=== PATIENT | male | born 1985 | race Caucasian/White ===

== ENCOUNTER 2016-10-15 02:35 | Emergency (ER) | payer OTHER ==
--- NOTE | 2016-10-15 05:53 | DIAGNOSTIC IMAGING REPORT ---
PROCEDURE: XR ANKLE 3 OR 4 VIEWS - RIGHT INDICATION: PAIN TECHNIQUE: Four views. COMPARISON: None. FINDINGS: No fracture or dislocation. Ankle mortise is normal. Moderate soft tissue swelling medially and laterally. IMPRESSION: 1. Right ankle soft tissue swelling.
--- NOTE | 2016-10-15 06:35 | ED NURSING NOTES ---
Clinical Report - Nurses [facility] [address] [place] [address] 10/15/2016 2:37 Patient: JACOB LEONE TRIAGE Triage time 02:47 Oct 15 2016. Chief Complaint: TENDER AREA. SEPSIS SCREEN: Sepsis Screen: negative. Infection suspected/documented. DIANA COMA SCORE: Diana Coma Scale: 15- eyes open spontaneously (4); best verbal response- oriented and converses (5); best motor response- obeys commands (6). --03:00 AliM 02:47 10/15/16. BP: 134/70. HR: 85. RR: 16 (regular, unlabored and normal). O2 saturation: 98%. Temp: 98.1 F (oral). Pain level now: 5/10. --03:00 AliM. Weight: 79.3 kg stated. Height/Length: 72 inches Per Patient. BMI: 23.7. --02:51 AliM. Medications Albuterol Sulfate ER Oral. --02:57 AliM. Allergies NSAIDs. --02:57 AliM Augmentin. --02:57 AliM. History Historian: patient. Arrived (friend dropped off). Primary physician (none). Reported as (right ankle and distal leg). Onset. (4 days ago). It is described as itchy and painful. ( Pt states he was working outside when he scratch his leg on a tree 4 days ago. Pt states pain has been intermittent since the scratch but has gotten worse today. Pt states additional wounds have been showing up around the area since initial injury. Pt states he has been applying Neosporin to the area but has stopped due to worsening condition. Pt reports nausea today only.). No fever, muscle aches, difficulty breathing, itching or weakness. Not burning. PAST MEDICAL HX: Asthma. Immunizations: up-to-date and (Pt states recieved last tetatnus shot 2-3 years ago). SOCIAL HX: Light tobacco smoker- less than 1/2 a pack per day. History of weekly drug use: heroin, methamphetamines. No alcohol use. No infectious disease exposure. ABUSE ASSESSMENT: No report of abuse. NUTRITIONAL RISK ASSESSMENT: The nutritional risk assessment revealed no deficiencies. FUNCTIONAL ASSESSMENT: Functional assessment: no impairments noted. LEARNING NEEDS ASSESSMENT: The learning needs assessment revealed no barriers. FALL RISK ASSESSMENT: Fall risk assessment completed. Risk factors identified include nausea. Fall interventions initiated. Side rails up x1. Brakes on Bed in low position. SKIN INTEGRITY ASSESSMENT: Abrasions noted on the right ankle; present on arrival (Scabs, redness). --03:00 AliM. PROBLEMS: Anxiety Reaction. Asthma. --02:59 AliM. ADDITIONAL SURGERIES: Gum repair from injury. --02:59 AliM. Interventions ID band on patient. To treatment room. --03:00 AliM. PHYSICAL ASSESSMENT To room via wheelchair. ( Multiple circular wounds around right ankle and up right distal leg.). GENERAL / NEURO / PSYCH: Alert. The patient does not appear to be in acute distress. Oriented X 4. HEENT: Mucous membranes are pink. RESPIRATORY: Respirations not labored. Breath sounds within normal limits. CVS: Pulses within normal limits. GI / : Abdomen nontender. EXTREMITIES: Capillary refill is less than 2 seconds in the extremities. Extremity pulses are within normal limits. Pain with weight bearing on RLE. No motor deficit in the extremities. Sensation intact. SKIN: Skin is warm and dry. Multiple small crusted blisters with erythema, tenderness and increased warmth on the right ankle. Normal skin turgor. Swelling on the right ankle- associated with erythema, tenderness and increased warmth. --03:06 AliM. NURSING PROGRESS NOTES The plan of care for this patient has been created. Head of bed elevated. Reassurance given. Call light placed in reach. Side rails up x 1. Bed placed in lowest position. Brakes of bed on. Patient ready for evaluation- ED physician notified. --03:07 AliM 03:57 10/15/2016 Site #1 started via IV in the right antecubital space with an 20g angiocath, with aseptic technique and good blood return; one attempt. Blood drawn: rainbow set. Labeled in the presence of the patient and sent to the lab. Saline lock flushed with 10 mL saline. --03:57 AliM 03:58 10/15/2016 Started bag #1 250 mL IV Fluids IV NS (Saline); at 250 mL/hr over 4 hour(s) via site #1 via IV pump. Allergies verified and confirmed 5 rights. IV patency established. IV site checked: no pain, redness, or swelling. IV flushed thoroughly pre- and post-medication administration. --03:58 AliM 03:58 10/15/2016 Started 1 gm of Vancomycin IVPB in bag #1 200 mL; at 200 mL/hr over 1 hour(s) via site #1 via IV pump. Allergies verified and confirmed 5 rights. IV patency established. IV site checked: no pain, redness, or swelling. IV flushed thoroughly pre- and post-medication administration. --04:00 AliM Patient ID band checked for patient name and birthdate: patient confirmed. Blood samples drawn from the right antecubital space peripheral IV site by nurse per protocol ; labeled in presence of the patient and sent to lab: rainbow set. Head of bed elevated. Reassurance given. Call light placed in reach. Side rails up x 1. Bed placed in lowest position. Brakes of bed on. --04:00 AliM 04:37 10/15/2016 Tylenol (Acetaminophen) PO Tablets 1000 mg given. Allergies verified and confirmed 5 rights. --04:42 Damari Eugenia 05:03 10/15/2016 Vancomycin IVPB Discontinued: bag #1 completed. Total amount infused: 200 mL. IV patency established. IV site checked: no pain, redness, or swelling. IV flushed thoroughly. --05:18 AliM 05:19 10/15/2016 Started 1 gm of Vancomycin IVPB in bag #1 200 mL; at 200 mL/hr over 1 hour(s) via site #1 via IV pump. Allergies verified and confirmed 5 rights. IV patency established. IV site checked: no pain, redness, or swelling. IV flushed thoroughly pre- and post-medication administration. --05:19 AliM 05:23 10/15/16. BP: 123/68. HR: 79. RR: 16 (regular, unlabored and normal). O2 saturation: 97%. Temp: 98.2 F (oral). Pain level now: 7/10. --05:24 AliM The plan of care for this patient has been created. Head of bed elevated. Call light placed in reach. Side rails up x 1. Bed placed in lowest position. Brakes of bed on. --05:24 AliM 05:50 10/15/2016 Ultram (TraMADol HCl) PO Tablets 50 mg given. Allergies verified, confirmed 5 rights and sedative warning given to the patient. --06:34 Eugenia Wetzel 06:23 10/15/2016 IV Fluids IV NS Discontinued: bag #1 discontinued upon discharge. Total amount infused: 650 mL. IV patency established. IV site checked: no pain, redness, or swelling. IV flushed thoroughly. --06:33 Eugenia Wetzel 06:33 10/15/2016 Vancomycin IVPB Discontinued: bag #2 completed upon discharge. Total amount infused: 200 mL. IV patency established. IV site checked: no pain, redness, or swelling. IV flushed thoroughly. --06:34 Eugenia Wetzel. DISPOSITION / DISCHARGE 06:22 10/15/16. Condition at departure: stable. The goals identified in the patient's plan of care were met. FALL RISK ASSESSMENT: Fall risk assessment completed. No fall risk identified. --06:22 Eugenia Wetzel 06:22 10/15/16. BP: 111/64. HR: 80. RR: 20. O2 saturation: 95% on room air. Temp: 98 F (oral). Pain level now: 01/22. --06:22 Eugenia Wetzel No learning barriers present. Discharge instructions provided and reviewed with the patient. Reviewed medication(s) side effects, precautions, dosing and course information. Reviewed wound care and skin care instructions. Reviewed need for increased fluid intake. Patient verbalized understanding. Written instructions provided in Venezuelan. ( Patient given list of resources. Patient encouraged to follow up with clinic or [facility] The patient was discharged by the physician. He was discharged home and unaccompanied at time of discharge. He left the Emergency Department ambulatory and via bus. --06:32 Eugenia Wetzel 06:22 10/15/2016 Site #1 removed upon discharge. Catheter intact. Bandaid applied. --06:32 Eugenia Wetzel. Locked/Released at 10/18/2016 18:19 by Eugenia Wetzel,
--- NOTE | 2016-10-15 06:35 | ED ORDER SUMMARY ---
..... Patient: JACOB LEONE OrderSheet [facility] VisitID: [id number] [address] [place] [address] 31y, M Registration Date/Time: 10/15/2016 ORDER SHEET Weight: 79.3 kg (stated) Allergies: NSAIDs, Augmentin GENERAL ORDERS: Ankle 3 or 4V Right Urgent (03:20 10/15/2016 Alida PHAN) (Ack 3:22 ALawrence ER Tech1) (3:37 GUnger) CBC w Diff Urgent (03:21 10/15/2016 Alida PHAN) (Ack 3:22 AMcKenna) (Ack 3:22 ALawrence ER Tech1) (3:56 AMcKenna) CRP Urgent (03:10/15/2016 Alida PHAN) (Ack 3:22 AMcMadina) (Ack 3:22 ALawrence ER Tech1) (3:56 AMcKenna) MEDICATION ORDERS: Tylenol PO 1,000 mg (NOW) (04:35 10/15/2016 Alida PHAN) (4:42 HSoule) Ultram PO 50 mg (NOW) (05:28 10/15/2016 Alida PHAN) (Ack 5:28 HSoule) (6:34 HSoule) IV FLUIDS: IV NS : initial bolus 250 mL (1000 mL/hr), then 250 mL/hr for 3h (NOW); Routine (03:20 10/15/2016 Alida PHAN) (Ack 3:21 AMcKenna) (3:58 AMcKenna) Vancomycin IV 25 mg/kg (NOW) (03:21 10/15/2016 Alida PHAN) (Ack 3:22 Boby) (4:00 AMcKenna) ORDER SHEET NOTES: [Electronically signed by Ward Saravia MD (23:15 10/17/2016)] [Electronically signed by Eugenia Wetzel (18:19 10/18/2016)] [Electronically locked/signed by Eugenia Wetzel (18:19 10/18/2016)]
--- NOTE | 2016-10-15 06:35 | ED CLINICAL REPORT ---
Clinical Report - Physicians/Mid Levels [facility] [address] [place] [address] 10/15/2016 2:37 Patient: JACOB LEONE Time Seen: 03:16 Oct 15 2016. Arrived- By private vehicle. Historian- patient. CPT: ER phys charges level 4 (#[id number]). HISTORY OF PRESENT ILLNESS Chief Complaint: LOWER EXTREMITY PAIN, SWELLING and ALTERED SENSATION. Severity is described as being moderate. The quality is noted to be aching and "pain". 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 (4 days ago). It is described as itchy and painful. ( Pt states he was working outside when he scratch his leg on a tree 4 days ago. Pt states pain has been intermittent since the scratch but has gotten worse today. Pt states additional wounds have been showing up around the area since initial injury. Pt states he has been applying Neosporin to the area but has stopped due to worsening condition. Pt reports nausea today only.). No fever, muscle aches, difficulty breathing, itching or weakness. Not burning.). Symptoms located in the area of the right leg. The patient has had swelling. Patient denies an injury. Similar symptoms previously: None. Recent medical care: Not recently seen/assessed. REVIEW OF SYSTEMS No cough, chest pain, difficulty breathing, fever or enlarged lymph nodes. No blurred vision, abdominal pain, vomiting, diarrhea or black stools. He has had skin rash. All systems otherwise negative, except as recorded above. PAST HISTORY ( Asthma. Immunizations: up-to-date and (Pt states recieved last tetatnus shot 2-3 years ago).). Medications: Albuterol Sulfate ER Oral. Allergies: Augmentin. NSAIDs. SOCIAL HISTORY Heavy tobacco smoker (cigarette)- less than 1 pack per day. History of drug use: heroin, methamphetamines. No alcohol use. ADDITIONAL NOTES The nursing notes have been reviewed. PHYSICAL EXAM Vital Signs: 10/15/2016 02:47 BP: 134/70. HR: 85. RR: 16. O2 saturation: 98%. Temp: 98.1 F. Pain level now: 5/10. Appearance: Alert. Patient in mild distress. Eyes: Eyes normal inspection. ENT: Pharynx normal. Neck: Normal inspection. CVS: Normal heart rate and rhythm. Heart sounds normal. No cardiac murmur. Respiratory: No respiratory distress. Breath sounds normal. Abdomen: Soft and nontender. Back: No tenderness. Skin: Skin warm. Normal skin color. (see above.). Extremities: Right leg: mild tenderness located in the mid and lower leg. Neurovascular intact distally. 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 There is swelling , tenderness and erythema over the left ankle consistent with cellulits.). No limitation of weight bearing. Neuro: Oriented X 3. No motor deficit. No sensory deficit. LABS, X-RAYS, AND EKG X-Rays: Right ankle negative. Laboratory Tests: CBC w Diff: (JESSICA: 10/15/2016 03:55) ( MsgRcvd 10/15/2016 04:04) Final results Test Result Flag Units (Reference) WHITE BLOOD COUNT 9.5 K/uL (4.5-11.5) RED BLOOD COUNT 4.11 L M/uL (4.50-5.90) HEMOGLOBIN 11.7 L gm/dL (13.5-17.5) HEMATOCRIT 35.2 L % (41.0-53.0) MEAN CELL VOLUME 86 fL (80-100) MEAN CORPUSCULAR HGB 28 pg (26-34) MEAN CORPUSCULAR HGB CONC 33 g/dL (31-37) RED CELL DISTRIBUTION WIDTH 14.5 % (11.6-14.8) PLATELET COUNT 276 K/uL (150-400) NEUTROPHIL % 55.4 % (50-75) LYMPH % 28.5 % (25-40) MONO % 11.4 % (3-14) EOSINOPHIL % 4.1 H % (0-4) BASOPHIL % 0.6 % (0-2) [id number]: (JESSICA: 10/15/2016 03:55) ( MsgRcvd 10/15/2016 04:09) Final results Test Result Flag Units (Reference) C-REACTIVE PROTEIN 3.0 H mg/dL (0.0-0.9) . PROGRESS AND PROCEDURES Course of Care: Vancomycin 2g IV Tylenol 1g po Patient is stable. Patient/family counseled. Disposition: Discharged. Condition: stable. CLINICAL IMPRESSION Cellulitis of the right ankle and right foot. Substance abuse problems: abuse of opiates. Substance dependence problems: dependence on opiates. INSTRUCTIONS Elevate affected areas above chest level for one days until better. Apply moist heat for 15-20 minutes three times a day for five days until better. Warnings: Further evaluation is necessary. GENERAL WARNINGS: Return or contact your physician immediately if your condition worsens or changes unexpectedly, if not improving as expected, or if other problems arise. Prescription Medications: Trimethoprim-Sulfamethoxazole DS: take 1 tablet orally every 12 hours for 7 days. Dispense fourteen (14). No refills. Understanding of the discharge instructions verbalized by patient. Follow-up with: [facility], , , [address], [facility], [id number] Follow up Tuesday in three days. Call for an appointment. (Electronically signed by Ward Saravia MD 10/17/2016 23:15)
--- NOTE | 2016-10-15 06:35 | ED ORDER SUMMARY ---
..... Patient: JACOB LEONE OrderSheet [facility] VisitID: [id number] [address] [place] [address] 31y, M Registration Date/Time: 10/15/2016 ORDER SHEET Weight: 79.3 kg (stated) Allergies: NSAIDs, Augmentin GENERAL ORDERS: Ankle 3 or 4V Right Urgent (03:20 10/15/2016 Alida PHAN) (Ack 3:22 ALawrence ER Tech1) (3:37 GUnger) CBC w Diff Urgent (03:21 10/15/2016 Alida PHAN) (Ack 3:22 AMcKenna) (Ack 3:22 ALawrence ER Tech1) (3:56 AMcKenna) CRP Urgent (03:10/15/2016 Alida PHAN) (Ack 3:22 AMcMadina) (Ack 3:22 ALawrence ER Tech1) (3:56 AMcKenna) MEDICATION ORDERS: Tylenol PO 1,000 mg (NOW) (04:35 10/15/2016 Alida PHAN) (4:42 HSoule) Ultram PO 50 mg (NOW) (05:28 10/15/2016 Alida PHAN) (Ack 5:28 HSoule) (6:34 HSoule) IV FLUIDS: IV NS : initial bolus 250 mL (1000 mL/hr), then 250 mL/hr for 3h (NOW); Routine (03:20 10/15/2016 Alida PHAN) (Ack 3:21 AMcKenna) (3:58 AMcKenna) Vancomycin IV 25 mg/kg (NOW) (03:21 10/15/2016 Alida PHAN) (Ack 3:22 Boby) (4:00 AMcKenna) ORDER SHEET NOTES: [Electronically signed by Ward Saravia MD (23:15 10/17/2016)] [Electronically signed by Eugenia Wetzel (18:19 10/18/2016)] [Electronically locked/signed by Eugenia Wetzel (18:19 10/18/2016)]
--- NOTE | 2016-10-15 06:35 | ED CLINICAL REPORT ---
Clinical Report - Physicians/Mid Levels [facility] [address] [place] [address] 10/15/2016 2:37 Patient: JACOB LEONE Time Seen: 03:16 Oct 15 2016. Arrived- By private vehicle. Historian- patient. CPT: ER phys charges level 4 (#[id number]). HISTORY OF PRESENT ILLNESS Chief Complaint: LOWER EXTREMITY PAIN, SWELLING and ALTERED SENSATION. Severity is described as being moderate. The quality is noted to be aching and "pain". 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 (4 days ago). It is described as itchy and painful. ( Pt states he was working outside when he scratch his leg on a tree 4 days ago. Pt states pain has been intermittent since the scratch but has gotten worse today. Pt states additional wounds have been showing up around the area since initial injury. Pt states he has been applying Neosporin to the area but has stopped due to worsening condition. Pt reports nausea today only.). No fever, muscle aches, difficulty breathing, itching or weakness. Not burning.). Symptoms located in the area of the right leg. The patient has had swelling. Patient denies an injury. Similar symptoms previously: None. Recent medical care: Not recently seen/assessed. REVIEW OF SYSTEMS No cough, chest pain, difficulty breathing, fever or enlarged lymph nodes. No blurred vision, abdominal pain, vomiting, diarrhea or black stools. He has had skin rash. All systems otherwise negative, except as recorded above. PAST HISTORY ( Asthma. Immunizations: up-to-date and (Pt states recieved last tetatnus shot 2-3 years ago).). Medications: Albuterol Sulfate ER Oral. Allergies: Augmentin. NSAIDs. SOCIAL HISTORY Heavy tobacco smoker (cigarette)- less than 1 pack per day. History of drug use: heroin, methamphetamines. No alcohol use. ADDITIONAL NOTES The nursing notes have been reviewed. PHYSICAL EXAM Vital Signs: 10/15/2016 02:47 BP: 134/70. HR: 85. RR: 16. O2 saturation: 98%. Temp: 98.1 F. Pain level now: 5/10. Appearance: Alert. Patient in mild distress. Eyes: Eyes normal inspection. ENT: Pharynx normal. Neck: Normal inspection. CVS: Normal heart rate and rhythm. Heart sounds normal. No cardiac murmur. Respiratory: No respiratory distress. Breath sounds normal. Abdomen: Soft and nontender. Back: No tenderness. Skin: Skin warm. Normal skin color. (see above.). Extremities: Right leg: mild tenderness located in the mid and lower leg. Neurovascular intact distally. 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 There is swelling , tenderness and erythema over the left ankle consistent with cellulits.). No limitation of weight bearing. Neuro: Oriented X 3. No motor deficit. No sensory deficit. LABS, X-RAYS, AND EKG X-Rays: Right ankle negative. Laboratory Tests: CBC w Diff: (JESSICA: 10/15/2016 03:55) ( MsgRcvd 10/15/2016 04:04) Final results Test Result Flag Units (Reference) WHITE BLOOD COUNT 9.5 K/uL (4.5-11.5) RED BLOOD COUNT 4.11 L M/uL (4.50-5.90) HEMOGLOBIN 11.7 L gm/dL (13.5-17.5) HEMATOCRIT 35.2 L % (41.0-53.0) MEAN CELL VOLUME 86 fL (80-100) MEAN CORPUSCULAR HGB 28 pg (26-34) MEAN CORPUSCULAR HGB CONC 33 g/dL (31-37) RED CELL DISTRIBUTION WIDTH 14.5 % (11.6-14.8) PLATELET COUNT 276 K/uL (150-400) NEUTROPHIL % 55.4 % (50-75) LYMPH % 28.5 % (25-40) MONO % 11.4 % (3-14) EOSINOPHIL % 4.1 H % (0-4) BASOPHIL % 0.6 % (0-2) [id number]: (JESSICA: 10/15/2016 03:55) ( MsgRcvd 10/15/2016 04:09) Final results Test Result Flag Units (Reference) C-REACTIVE PROTEIN 3.0 H mg/dL (0.0-0.9) . PROGRESS AND PROCEDURES Course of Care: Vancomycin 2g IV Tylenol 1g po Patient is stable. Patient/family counseled. Disposition: Discharged. Condition: stable. CLINICAL IMPRESSION Cellulitis of the right ankle and right foot. Substance abuse problems: abuse of opiates. Substance dependence problems: dependence on opiates. INSTRUCTIONS Elevate affected areas above chest level for one days until better. Apply moist heat for 15-20 minutes three times a day for five days until better. Warnings: Further evaluation is necessary. GENERAL WARNINGS: Return or contact your physician immediately if your condition worsens or changes unexpectedly, if not improving as expected, or if other problems arise. Prescription Medications: Trimethoprim-Sulfamethoxazole DS: take 1 tablet orally every 12 hours for 7 days. Dispense fourteen (14). No refills. Understanding of the discharge instructions verbalized by patient. Follow-up with: [facility], , , [address], [facility], [id number] Follow up Tuesday in three days. Call for an appointment. (Electronically signed by Ward Saravia MD 10/17/2016 23:15)
--- NOTE | 2016-10-18 18:20 | ED MED RECONCILIATION SUMMARY ---
Patient: JACOB LEONE Medication Reconciliation Report [facility] VisitID: [id number] [address] [place] [address] 31y, M Registration Date/Time: 10/15/2016 Weight: 79.3 kg Height/Length: 72 in. BMI: 23.7 ALLERGIES: Augmentin, NSAIDs The patient's Home Medications are listed below: THE FOLLOWING MEDICATIONS NEED TO BE RECONCILED: Albuterol Sulfate ER Oral The source(s) of the original Home Medication information: Not obtained. The following Medications were given to the patient in the Emergency Department: IV NS IV Fluids bolus 0, then 250 mL/hr, administered: 10/15/2016 3:58:00 AM Vancomycin [IVPB] IVPB bolus 0, then 1 gm 200 mL/hr, administered: 10/15/2016 3:58:00 AM Tylenol [PO] PO 1000 mg, administered: 10/15/2016 4:37:00 AM Vancomycin [IVPB] IVPB bolus 0, then 1 gm 200 mL/hr, administered: 10/15/2016 5:19:00 AM Ultram [PO] PO 50 mg, administered: 10/15/2016 5:50:00 AM The following Medications were prescribed to the patient: Trimethoprim-Sulfamethoxazole DS: take 1 tablet orally every 12 hours for 7 days. Dispense fourteen (14). No refills. -- Ward Saravia MD
--- NOTE | 2016-10-18 18:20 | ED MAR SUMMARY ---
..... Medication Administration Record [facility] [address] [place] [address] Patient: JACOB LEONE Visit ID: [id number] 31y, M Weight: 79.3 kg Height/Length: 72 in BMI: 23.7 ALLERGIES: Augmentin, NSAIDs Start 03:58 10/15/2016 Juliet,, Stop 06:23 10/15/2016 Eugenia Wetzel, Medication Administered: IV NS (SALINE), Dose: IV Fluids over 4 hour(s), Rate: 250 mL/hr, Dispensed: 250 mL bag, Site: #1 right AC. Medication Ordered: IV NS : initial bolus 250 mL (1000 mL/hr), then 250 mL/hr for 3h (NOW); Routine. Start 03:58 10/15/2016 Juliet,, Stop 05:03 10/15/2016 EleazarM, Medication Administered: VANCOMYCIN [IVPB], Dose: 1 gm IVPB over 1 hour(s), Rate: 200 mL/hr, Dispensed: 200 mL bag, Site: #1 right AC. Medication Ordered: Vancomycin IV 25 mg/kg (NOW). Given 04:37 10/15/2016 Eugenia Wetzel, Medication Administered: TYLENOL [PO] (ACETAMINOPHEN), Dose: 1000 mg Tablets PO. Medication Ordered: Tylenol PO 1,000 mg (NOW). Start 05:19 10/15/2016 Juliet,, Stop 06:33 10/15/2016 Eugenia Wetzel, Medication Administered: VANCOMYCIN [IVPB], Dose: 1 gm IVPB over 1 hour(s), Rate: 200 mL/hr, Dispensed: 200 mL bag, Site: #1 right AC. Medication Ordered: Vancomycin IV 25 mg/kg (NOW). Given 05:50 10/15/2016 Eugenia Wetzel, Medication Administered: ULTRAM [PO] (TRAMADOL HCL), Dose: 50 mg Tablets PO. Medication Ordered: Ultram PO 50 mg (NOW).
--- NOTE | 2016-10-18 18:20 | ED MED RECONCILIATION SUMMARY ---
Patient: JACOB LEONE Medication Reconciliation Report [facility] VisitID: [id number] [address] [place] [address] 31y, M Registration Date/Time: 10/15/2016 Weight: 79.3 kg Height/Length: 72 in. BMI: 23.7 ALLERGIES: Augmentin, NSAIDs The patient's Home Medications are listed below: THE FOLLOWING MEDICATIONS NEED TO BE RECONCILED: Albuterol Sulfate ER Oral The source(s) of the original Home Medication information: Not obtained. The following Medications were given to the patient in the Emergency Department: IV NS IV Fluids bolus 0, then 250 mL/hr, administered: 10/15/2016 3:58:00 AM Vancomycin [IVPB] IVPB bolus 0, then 1 gm 200 mL/hr, administered: 10/15/2016 3:58:00 AM Tylenol [PO] PO 1000 mg, administered: 10/15/2016 4:37:00 AM Vancomycin [IVPB] IVPB bolus 0, then 1 gm 200 mL/hr, administered: 10/15/2016 5:19:00 AM Ultram [PO] PO 50 mg, administered: 10/15/2016 5:50:00 AM The following Medications were prescribed to the patient: Trimethoprim-Sulfamethoxazole DS: take 1 tablet orally every 12 hours for 7 days. Dispense fourteen (14). No refills. -- Ward Saravia MD
--- NOTE | 2016-10-18 18:20 | ED MAR SUMMARY ---
..... Medication Administration Record [facility] [address] [address] Patient: JACOB LEONE Visit ID: [id number] 31y, M Weight: 79.3 kg Height/Length: 72 in BMI: 23.7 ALLERGIES: Augmentin, NSAIDs Start 03:58 10/15/2016 Juliet,, Stop 06:23 10/15/2016 Eugenia Wetzel, Medication Administered: IV NS (SALINE), Dose: IV Fluids over 4 hour(s), Rate: 250 mL/hr, Dispensed: 250 mL bag, Site: #1 right AC. Medication Ordered: IV NS : initial bolus 250 mL (1000 mL/hr), then 250 mL/hr for 3h (NOW); Routine. Start 03:58 10/15/2016 Juliet,, Stop 05:03 10/15/2016 EleazarM, Medication Administered: VANCOMYCIN [IVPB], Dose: 1 gm IVPB over 1 hour(s), Rate: 200 mL/hr, Dispensed: 200 mL bag, Site: #1 right AC. Medication Ordered: Vancomycin IV 25 mg/kg (NOW). Given 04:37 10/15/2016 Eugenia Wetzel, Medication Administered: TYLENOL [PO] (ACETAMINOPHEN), Dose: 1000 mg Tablets PO. Medication Ordered: Tylenol PO 1,000 mg (NOW). Start 05:19 10/15/2016 Juliet,, Stop 06:33 10/15/2016 Eugenia Wetzel, Medication Administered: VANCOMYCIN [IVPB], Dose: 1 gm IVPB over 1 hour(s), Rate: 200 mL/hr, Dispensed: 200 mL bag, Site: #1 right AC. Medication Ordered: Vancomycin IV 25 mg/kg (NOW). Given 05:50 10/15/2016 Eugenia Wetzel, Medication Administered: ULTRAM [PO] (TRAMADOL HCL), Dose: 50 mg Tablets PO. Medication Ordered: Ultram PO 50 mg (NOW).
--- NOTE | 2016-10-18 18:20 | ED DISCHARGE INSTRUCTIONS ---
Patient: JACOB LEONE General Instructions [facility] VisitID: [id number] [address] [place] [address] 31y, M Registration Date/Time: 10/15/2016 Cellulitis of the right ankle and right foot. Substance abuse problems: abuse of opiates. Substance dependence problems: dependence on opiates. INSTRUCTIONS Elevate affected areas above chest level for one days until better. Apply moist heat for 15-20 minutes three times a day for five days until better. Warnings: Further evaluation is necessary. GENERAL WARNINGS: Return or contact your physician immediately if your condition worsens or changes unexpectedly, if not improving as expected, or if other problems arise. Prescription Medications: Trimethoprim-Sulfamethoxazole DS: take 1 tablet orally every 12 hours for 7 days. Dispense fourteen (14). No refills. Understanding of the discharge instructions verbalized by patient. Follow-up with: [facility], , , [address], , [place], [address] Follow up Tuesday in three days. Call for an appointment. ADDITIONAL INFORMATION Cellulitis You have an infection of the skin known as cellulitis. This usually starts with a scrape, cut, insect bite, blister or other opening in the skin which becomes infected. This is a serious condition. It must be watched closely to be sure the infection is not spreading. With antibiotic treatment, the size of the red area will gradually shrink in size until the skin returns to normal. This will take 7-10 days. The red area should never increase in size once the antibiotic medicine has been started. Occasionally, an infection will be resistant to one antibiotic and another one will have to be used. Home Care: 1) Limit the use of the affected part, since excess movement can cause the infection to spread. 2) If the infection is on your leg, walk as little as possible during the first few days of the treatment. Keep your leg elevated while sitting. This will reduce swelling. 3) Take all of the antibiotic medicine exactly as directed until it is gone. Be careful not to miss any doses, especially during the first seven days. Follow Up with your doctor or this facility as directed. Check the infected area daily for the warning signs listed below. Get Prompt Medical Attention if any of the following occur: -- Spreading area of redness -- Increasing swelling or pain -- Appearance of pus or drainage -- Fever over 100.4 F (38.0 C) oral, or over 101.4 F (38.6 C) rectal, after two days on antibiotics Staph Infection (MRSA) "Staph" is the short name for the common bacteria called "staphylococcus aureus". Staph bacteria are often present on the skin without causing an infection. If it gets under the skin an infection occurs. This causes redness, tenderness, swelling and sometimes fluid drainage. MRSA stands for "Methicillin-Resistant Staph Aureus". Unlike a common staph infection, MRSA bacteria are resistant to the usual antibiotics and harder to treat. Also, MRSA is more toxic than common staph bacteria. It can spread quickly throughout the body and cause a life-threatening illness. MRSA is spread to others by direct physical contact with the bacteria. MRSA can also be transmitted from items contaminated by a person who has the bacteria, such as bandages, towels, bed sheets, or sports equipment. It is not spread through the air. Once you have a MRSA skin infection, you are at risk of having it recur in the future. If MRSA infection is suspected, the doctor may take a wound culture to confirm the diagnosis. Any abscess will be drained. One or sometimes two antibiotics that work against MRSA will be prescribed. Home Care: 1) Take any antibiotics prescribed exactly as directed until they are gone. 2) Follow the same washing procedures as outlined for Household Members below. 3) Keep draining wounds covered with clean, dry bandages. Change dressings as they become soiled. 4) You and those in contact with you should wash their hands frequently with soap and warm water or use an alcohol-based hand release of information clerk. Do this after each time you change the bandage or touch the wound. 5) Avoid sharing personal items such as towels, washcloths, razors, clothing, or uniforms. Wash soiled sheets, towels or clothes in hot water with laundry detergent. Use an automatic clothes dryer set on high to kill any remaining bacteria. 6) Remove any artificial nails and nail maldivian. 7) If you use a gym, wipe down equipment before and after each use. Treatment Of Household Members If you have been diagnosed with possible MRSA infection, those living with you are at higher risk of carrying the bacteria on their skin or in their nose, even if there is no sign of infection. Bacteria must be removed from the skin of all household members (including you) at the same time, so that it is not passed back and forth. Advise them to remove the bacteria as follows: Wash your whole body (scalp to toes) daily for five days with Hibiclens (chlorhexidine). Scrub fingernails with a brush for one minute twice a day. If any skin infections are present (boils, abscess, infected cut) these must be treated by a doctor. Washing alone will not treat a MRSA infection. Clean counter tops and children's toys; do not share personal items such as toothbrush and razors. It is okay to share glasses, plates, utensils. If antibiotic ointment was prescribed use it as directed. Follow Up with your doctor or as advised by our staff. If a wound culture was taken, call as directed in two days to obtain the results. If the culture result is positive for MRSA, tell medical personnel in the future that you were treated for this type of infection. Get Prompt Medical Attention if any of the following occur: -- Increasing redness, swelling or pain -- Red streaks in the skin around the wound -- Weakness or dizziness -- New appearance of pus or drainage from the wound -- New fever over 100.4 F (38.0 C) You have been given the following additional information: Cellulitis MRSA Skin Infection, Suspected Or Confirmed (Electronically signed by Ward Saravia MD 10/17/2016 23:15)
--- NOTE | 2016-10-18 18:20 | ED DISCHARGE INSTRUCTIONS ---
Patient: JACOB LEONE General Instructions [facility] VisitID: [id number] [address] [place] [address] 31y, M Registration Date/Time: 10/15/2016 Cellulitis of the right ankle and right foot. Substance abuse problems: abuse of opiates. Substance dependence problems: dependence on opiates. INSTRUCTIONS Elevate affected areas above chest level for one days until better. Apply moist heat for 15-20 minutes three times a day for five days until better. Warnings: Further evaluation is necessary. GENERAL WARNINGS: Return or contact your physician immediately if your condition worsens or changes unexpectedly, if not improving as expected, or if other problems arise. Prescription Medications: Trimethoprim-Sulfamethoxazole DS: take 1 tablet orally every 12 hours for 7 days. Dispense fourteen (14). No refills. Understanding of the discharge instructions verbalized by patient. Follow-up with: [facility], , , [address], , [place], [id number] Follow up Tuesday in three days. Call for an appointment. ADDITIONAL INFORMATION Cellulitis You have an infection of the skin known as cellulitis. This usually starts with a scrape, cut, insect bite, blister or other opening in the skin which becomes infected. This is a serious condition. It must be watched closely to be sure the infection is not spreading. With antibiotic treatment, the size of the red area will gradually shrink in size until the skin returns to normal. This will take 7-10 days. The red area should never increase in size once the antibiotic medicine has been started. Occasionally, an infection will be resistant to one antibiotic and another one will have to be used. Home Care: 1) Limit the use of the affected part, since excess movement can cause the infection to spread. 2) If the infection is on your leg, walk as little as possible during the first few days of the treatment. Keep your leg elevated while sitting. This will reduce swelling. 3) Take all of the antibiotic medicine exactly as directed until it is gone. Be careful not to miss any doses, especially during the first seven days. Follow Up with your doctor or this facility as directed. Check the infected area daily for the warning signs listed below. Get Prompt Medical Attention if any of the following occur: -- Spreading area of redness -- Increasing swelling or pain -- Appearance of pus or drainage -- Fever over 100.4 F (38.0 C) oral, or over 101.4 F (38.6 C) rectal, after two days on antibiotics Staph Infection (MRSA) "Staph" is the short name for the common bacteria called "staphylococcus aureus". Staph bacteria are often present on the skin without causing an infection. If it gets under the skin an infection occurs. This causes redness, tenderness, swelling and sometimes fluid drainage. MRSA stands for "Methicillin-Resistant Staph Aureus". Unlike a common staph infection, MRSA bacteria are resistant to the usual antibiotics and harder to treat. Also, MRSA is more toxic than common staph bacteria. It can spread quickly throughout the body and cause a life-threatening illness. MRSA is spread to others by direct physical contact with the bacteria. MRSA can also be transmitted from items contaminated by a person who has the bacteria, such as bandages, towels, bed sheets, or sports equipment. It is not spread through the air. Once you have a MRSA skin infection, you are at risk of having it recur in the future. If MRSA infection is suspected, the doctor may take a wound culture to confirm the diagnosis. Any abscess will be drained. One or sometimes two antibiotics that work against MRSA will be prescribed. Home Care: 1) Take any antibiotics prescribed exactly as directed until they are gone. 2) Follow the same washing procedures as outlined for Household Members below. 3) Keep draining wounds covered with clean, dry bandages. Change dressings as they become soiled. 4) You and those in contact with you should wash their hands frequently with soap and warm water or use an alcohol-based hand mailer. Do this after each time you change the bandage or touch the wound. 5) Avoid sharing personal items such as towels, washcloths, razors, clothing, or uniforms. Wash soiled sheets, towels or clothes in hot water with laundry detergent. Use an automatic clothes dryer set on high to kill any remaining bacteria. 6) Remove any artificial nails and nail [place]. 7) If you use a gym, wipe down equipment before and after each use. Treatment Of Household Members If you have been diagnosed with possible MRSA infection, those living with you are at higher risk of carrying the bacteria on their skin or in their nose, even if there is no sign of infection. Bacteria must be removed from the skin of all household members (including you) at the same time, so that it is not passed back and forth. Advise them to remove the bacteria as follows: Wash your whole body (scalp to toes) daily for five days with Hibiclens (chlorhexidine). Scrub fingernails with a brush for one minute twice a day. If any skin infections are present (boils, abscess, infected cut) these must be treated by a doctor. Washing alone will not treat a MRSA infection. Clean counter tops and children's toys; do not share personal items such as toothbrush and razors. It is okay to share glasses, plates, utensils. If antibiotic ointment was prescribed use it as directed. Follow Up with your doctor or as advised by our staff. If a wound culture was taken, call as directed in two days to obtain the results. If the culture result is positive for MRSA, tell medical personnel in the future that you were treated for this type of infection. Get Prompt Medical Attention if any of the following occur: -- Increasing redness, swelling or pain -- Red streaks in the skin around the wound -- Weakness or dizziness -- New appearance of pus or drainage from the wound -- New fever over 100.4 F (38.0 C) You have been given the following additional information: Cellulitis MRSA Skin Infection, Suspected Or Confirmed (Electronically signed by Ward Saravia MD 10/17/2016 23:15)
== END 2016-10-15 06:40 | disposition home or self-care (01) ==
LOC: ED SRH 02:35
DX: L03.115 Cellulitis of right lower limb (principal); F11.10 Opioid abuse, uncomplicated; J45.909 Unspecified asthma, uncomplicated; Z79.899 Other long term (current) drug therapy; F17.210 Nicotine dependence, cigarettes, uncomplicated; Z88.8 Allergy status to other drugs, medicaments and biological substances; Z88.4 Allergy status to anesthetic agent

== ENCOUNTER 2016-10-15 09:00 | Emergency (ER) | payer OTHER ==
--- NOTE | 2016-10-15 09:19 | ED CLINICAL REPORT ---
Clinical Report - Physicians/Mid Levels [facility] [address] [place] [address] 10/15/2016 9:06 [id number] Time Seen: 09:00. Arrived- Came in police custody. Historian- patient. HISTORY OF PRESENT ILLNESS Chief Complaint: SKIN LESION clear to book. This started several days ago and is still present and now worse. It was gradual in onset and has been constant. Recent medical care: The patient was seen recently at this facility. Seen for similar symptoms. Evaluation/treatment: antibiotic prescribed. Diagnosis: (cellulitis). ( the patient was seen here earlier this morning by Dr. Saravia. He received a dose of vancomycin and a prescription for trimethoprim sulfamethoxazole. Dr. Saravia reports that he did x-rays of the patient's leg and that these were unremarkable. The patient is not sure where the prescription for the antibiotic is and he has not yet filled it.). REVIEW OF SYSTEMS No chills, fever, sweats, chest pain or cough. No difficulty breathing, abdominal pain, constipation, diarrhea or nausea. No vomiting or urinary problems. He has had mild pedal edema involving the right leg. All systems otherwise negative, except as recorded above. PAST HISTORY Problems: Substance Abuse. Asthma. Anxiety Reaction. Medications: Bactrim DS Oral. Albuterol Sulfate HFA Inhalation. Allergies: Augmentin. NSAIDs. SOCIAL HISTORY Current every day heavy tobacco smoker (cigarette)- 1-2 packs per day. Occasional alcohol use. History of heavy IV drug use: heroin, methamphetamines. FAMILY HISTORY Denies family medical history. ADDITIONAL NOTES The nursing notes have been reviewed. PHYSICAL EXAM Vital Signs: 10/15/2016 09:00 BP: 132/80. HR: 85. RR: 16. O2 saturation: 100%. Temp: 98.7 F. Pain level now: 7/10. Have been reviewed. Appearance: Alert. Eyes: Pupils equal, round and reactive to light. ENT: Pharynx normal. Neck: Normal inspection. Neck supple. CVS: Normal heart rate and rhythm. Heart sounds normal. Respiratory: No respiratory distress. Breath sounds normal. Abdomen: No visible injury. Soft and nontender. Bowel sounds normal. No organomegaly. No mass. Back: Normal inspection. Skin: Skin warm and dry. Medium area of cellulitis with tenderness, erythema and warmth to right leg, right ankle and right foot (with multiple excoriative lesions and spots of folliculitis). No lymphangitis. Extremities: Extremities exhibit normal ROM. No calf tenderness. PROGRESS AND PROCEDURES Course of Care: Patient is stable. Patient/family counseled. Old ED records reviewed. Disposition: Discharged to residential. Condition: stable. CLINICAL IMPRESSION Cellulitis of the right lower leg, right ankle and right foot. Superficial folliculitis INSTRUCTIONS Warnings: GENERAL WARNINGS: Return or contact your physician immediately if your condition worsens or changes unexpectedly, if not improving as expected, or if other problems arise. Prescription Medications: Trimethoprim-Sulfamethoxazole DS: take 1 tablet orally every 12 hours for 10 days. No refill. Understanding of the discharge instructions verbalized by patient. Follow-up with: [facility], , , [address], , [place], [id number] Follow up in seven days if not better. Call for an appointment. (Electronically signed by Mohsen Jones MD 10/15/2016 11:13)
--- NOTE | 2016-10-15 09:19 | ED NURSING NOTES ---
Clinical Report - Nurses [facility] [address] [place] [address] 10/15/2016 9:06 Patient: JACOB LEONE TRIAGE Triage time 09:00. Acuity: LEVEL 4. Chief Complaint: (open wounds). Alert. No acute distress. DIANA COMA SCORE: Diana Coma Scale: 15- eyes open spontaneously (4); best verbal response- oriented x 4 (5); best motor response- obeys commands (6). --09:10 Ailyn Barriga R.N. 09:00 10/15/16. BP: 132/80. HR: 85. RR: 16. O2 saturation: 100%. Temp: 98.7 F (oral). Pain level now: 02/21. --09:10 Ailyn Barriga R.N. Weight: 79.3 kg stated. Height/Length: 72 inches Per Patient. BMI: 23.7. --09:09 Ailyn Barriga R.N. Medications Albuterol Sulfate HFA Inhalation. --09:03 Ailyn Barriga R.N. Bactrim DS Oral. --09:09 Ailyn Barriga R.N. Medication/allergy information source: the patient. --09:10 Ailyn Barriga R.N. Allergies Augmentin. --09:03 Ailyn Barriga R.N. NSAIDs. --09:03 Ailyn Barriga R.N. History Arrived by private vehicle. Historian: patient. Accompanied by police. Primary physician (none). Location of injuries: right leg and left leg. PAST MEDICAL HX: Last tetanus: (1 years). SOCIAL HX: Heavy tobacco smoker- 1-2 packs per day. Occasional alcohol use. History of drug use: heroin. FALL RISK ASSESSMENT: Fall risk assessment completed. No fall risk identified. FUNCTIONAL ASSESSMENT: Functional assessment: no impairments noted. LEARNING NEEDS ASSESSMENT: The learning needs assessment revealed no barriers. --09:10 Ailyn Barriga R.N. PROBLEMS: Asthma. --09:04 Ailyn Barriga R.N. ADDITIONAL SURGERIES: Dental Surgery. --09:04 Ailyn Barriga R.N. Assessment GENERAL / NEURO / PSYCH: Alert. Oriented X 4. Appears in no acute distress. Patient appears calm and cooperative. RESPIRATORY: Respirations not labored. SKIN: Skin is warm and dry. --09:10 Ailyn Barriga R.N. Interventions ID and allergy band on patient. To treatment room. --09:10 Ailyn Barriga R.N. PHYSICAL ASSESSMENT 09:13 10/15/16. Ambulatory to room. GENERAL / NEURO / PSYCH: Alert. Oriented X 4. Appears in no acute distress. RESPIRATORY: Respirations not labored. SKIN: Skin is warm and dry. ( open sores on bilat legs). --09:13 Ailyn Barriga R.N. NURSING PROGRESS NOTES 09:10/15/16. Call light placed in reach. Side rails up x 1. Bed placed in lowest position. Brakes of bed on. At the patient's bedside (police). --09:13 Ailyn Barriga R.N. 09:20. The patient is calm. Overall patient status is the same- he states feels the same. GENERAL / NEURO / PSYCH: Alert. Oriented X 4. --09:54 Ailyn Barriga R.N. DISPOSITION / DISCHARGE Departure time: 929. Condition at departure: unchanged. No learning barriers present. Discharge instructions provided and reviewed (police). Reviewed medication(s) (police). Written instructions provided in Czech. Verbalized understanding (police). The patient was discharged to police department facility and accompanied by a police escort. He left the Emergency Department ambulatory and via police department vehicle. FALL RISK ASSESSMENT: Fall risk assessment completed. No fall risk identified. --09:56 Ailyn Barriga R.N. 09:53 10/15/16. Pain level now: 7/10. Additional comments: here under an hour. --09:56 Ailyn Barriga R.N. Locked/Released at 10/15/2016 9:56 by Ailyn Barriga R.N.
--- NOTE | 2016-10-15 09:19 | ED NURSING NOTES ---
Clinical Report - Nurses [place] [address] [place] [address] 10/15/2016 9:06 Patient: JACOB LEONE TRIAGE Triage time 09:00. Acuity: LEVEL 4. Chief Complaint: (open wounds). Alert. No acute distress. DIANA COMA SCORE: Diana Coma Scale: 15- eyes open spontaneously (4); best verbal response- oriented x 4 (5); best motor response- obeys commands (6). --09:10 Ailyn Barriga R.N. 09:00 10/15/16. BP: 132/80. HR: 85. RR: 16. O2 saturation: 100%. Temp: 98.7 F (oral). Pain level now: 02/21. --09:10 Ailyn Barriga R.N. Weight: 79.3 kg stated. Height/Length: 72 inches Per Patient. BMI: 23.7. --09:09 Ailyn Barriga R.N. Medications Albuterol Sulfate HFA Inhalation. --09:03 Ailyn Barriga R.N. Bactrim DS Oral. --09:09 Ailyn Barriga R.N. Medication/allergy information source: the patient. --09:10 Ailyn Barriga R.N. Allergies Augmentin. --09:03 Ailyn Barriga R.N. NSAIDs. --09:03 Ailyn Barriga R.N. History Arrived by private vehicle. Historian: patient. Accompanied by police. Primary physician (none). Location of injuries: right leg and left leg. PAST MEDICAL HX: Last tetanus: (1 years). SOCIAL HX: Heavy tobacco smoker- 1-2 packs per day. Occasional alcohol use. History of drug use: heroin. FALL RISK ASSESSMENT: Fall risk assessment completed. No fall risk identified. FUNCTIONAL ASSESSMENT: Functional assessment: no impairments noted. LEARNING NEEDS ASSESSMENT: The learning needs assessment revealed no barriers. --09:10 Ailyn Barriga R.N. PROBLEMS: Asthma. --09:04 Ailyn Barriga R.N. ADDITIONAL SURGERIES: Dental Surgery. --09:04 Ailyn Barriga R.N. Assessment GENERAL / NEURO / PSYCH: Alert. Oriented X 4. Appears in no acute distress. Patient appears calm and cooperative. RESPIRATORY: Respirations not labored. SKIN: Skin is warm and dry. --09:10 Ailyn Barriga R.N. Interventions ID and allergy band on patient. To treatment room. --09:10 Ailyn Barriga R.N. PHYSICAL ASSESSMENT 09:13 10/15/16. Ambulatory to room. GENERAL / NEURO / PSYCH: Alert. Oriented X 4. Appears in no acute distress. RESPIRATORY: Respirations not labored. SKIN: Skin is warm and dry. ( open sores on bilat legs). --09:13 Ailyn Barriga R.N. NURSING PROGRESS NOTES 09:10/15/16. Call light placed in reach. Side rails up x 1. Bed placed in lowest position. Brakes of bed on. At the patient's bedside (police). --09:13 Ailyn Barriga R.N. 09:20. The patient is calm. Overall patient status is the same- he states feels the same. GENERAL / NEURO / PSYCH: Alert. Oriented X 4. --09:54 Ailyn Barriga R.N. DISPOSITION / DISCHARGE Departure time: 929. Condition at departure: unchanged. No learning barriers present. Discharge instructions provided and reviewed (police). Reviewed medication(s) (police). Written instructions provided in Beninese. Verbalized understanding (police). The patient was discharged to police department facility and accompanied by a police escort. He left the Emergency Department ambulatory and via police department vehicle. FALL RISK ASSESSMENT: Fall risk assessment completed. No fall risk identified. --09:56 Ailyn Barriga R.N. 09:53 10/15/16. Pain level now: 7/10. Additional comments: here under an hour. --09:56 Ailyn Barriga R.N. Locked/Released at 10/15/2016 9:56 by Ailyn Barriga R.N.
--- NOTE | 2016-10-15 09:19 | ED CLINICAL REPORT ---
Clinical Report - Physicians/Mid Levels [facility] [address] [place] [address] 10/15/2016 9:06 [id number] Time Seen: 09:00. Arrived- Came in police custody. Historian- patient. HISTORY OF PRESENT ILLNESS Chief Complaint: SKIN LESION clear to book. This started several days ago and is still present and now worse. It was gradual in onset and has been constant. Recent medical care: The patient was seen recently at this facility. Seen for similar symptoms. Evaluation/treatment: antibiotic prescribed. Diagnosis: (cellulitis). ( the patient was seen here earlier this morning by Dr. Saravia. He received a dose of vancomycin and a prescription for trimethoprim sulfamethoxazole. Dr. Saravia reports that he did x-rays of the patient's leg and that these were unremarkable. The patient is not sure where the prescription for the antibiotic is and he has not yet filled it.). REVIEW OF SYSTEMS No chills, fever, sweats, chest pain or cough. No difficulty breathing, abdominal pain, constipation, diarrhea or nausea. No vomiting or urinary problems. He has had mild pedal edema involving the right leg. All systems otherwise negative, except as recorded above. PAST HISTORY Problems: Substance Abuse. Asthma. Anxiety Reaction. Medications: Bactrim DS Oral. Albuterol Sulfate HFA Inhalation. Allergies: Augmentin. NSAIDs. SOCIAL HISTORY Current every day heavy tobacco smoker (cigarette)- 1-2 packs per day. Occasional alcohol use. History of heavy IV drug use: heroin, methamphetamines. FAMILY HISTORY Denies family medical history. ADDITIONAL NOTES The nursing notes have been reviewed. PHYSICAL EXAM Vital Signs: 10/15/2016 09:00 BP: 132/80. HR: 85. RR: 16. O2 saturation: 100%. Temp: 98.7 F. Pain level now: 7/10. Have been reviewed. Appearance: Alert. Eyes: Pupils equal, round and reactive to light. ENT: Pharynx normal. Neck: Normal inspection. Neck supple. CVS: Normal heart rate and rhythm. Heart sounds normal. Respiratory: No respiratory distress. Breath sounds normal. Abdomen: No visible injury. Soft and nontender. Bowel sounds normal. No organomegaly. No mass. Back: Normal inspection. Skin: Skin warm and dry. Medium area of cellulitis with tenderness, erythema and warmth to right leg, right ankle and right foot (with multiple excoriative lesions and spots of folliculitis). No lymphangitis. Extremities: Extremities exhibit normal ROM. No calf tenderness. PROGRESS AND PROCEDURES Course of Care: Patient is stable. Patient/family counseled. Old ED records reviewed. Disposition: Discharged to half-way. Condition: stable. CLINICAL IMPRESSION Cellulitis of the right lower leg, right ankle and right foot. Superficial folliculitis INSTRUCTIONS Warnings: GENERAL WARNINGS: Return or contact your physician immediately if your condition worsens or changes unexpectedly, if not improving as expected, or if other problems arise. Prescription Medications: Trimethoprim-Sulfamethoxazole DS: take 1 tablet orally every 12 hours for 10 days. No refill. Understanding of the discharge instructions verbalized by patient. Follow-up with: [facility], , , [address], , [place], [id number] Follow up in seven days if not better. Call for an appointment. (Electronically signed by Mohsen Jones MD 10/15/2016 11:13)
--- NOTE | 2016-10-15 11:14 | ED MAR SUMMARY ---
..... Medication Administration Record [facility] [address] [place], [place] [id number] Patient: JACOB LEONE Visit ID: [id number] 31y, M Weight: 79.3 kg Height/Length: 72 in BMI: 23.7 ALLERGIES: NSAIDs, Augmentin
--- NOTE | 2016-10-15 11:14 | ED MAR SUMMARY ---
..... Medication Administration Record [facility] [address] [place], [place] [id number] Patient: JACOB LEONE Visit ID: [id number] 31y, M Weight: 79.3 kg Height/Length: 72 in BMI: 23.7 ALLERGIES: NSAIDs, Augmentin
--- NOTE | 2016-10-15 11:14 | ED DISCHARGE INSTRUCTIONS ---
Patient: JACOB LEONE General Instructions [facility] VisitID: [id number] [address] [place] [address] 31y, M Registration Date/Time: 10/15/2016 Cellulitis of the right lower leg, right ankle and right foot. Superficial folliculitis INSTRUCTIONS Warnings: GENERAL WARNINGS: Return or contact your physician immediately if your condition worsens or changes unexpectedly, if not improving as expected, or if other problems arise. Prescription Medications: Trimethoprim-Sulfamethoxazole DS: take 1 tablet orally every 12 hours for 10 days. No refill. Understanding of the discharge instructions verbalized by patient. Follow-up with: [facility], , , [address], [place], [id number] Follow up in seven days if not better. Call for an appointment. ADDITIONAL INFORMATION Cellulitis You have an infection of the skin known as cellulitis. This usually starts with a scrape, cut, insect bite, blister or other opening in the skin which becomes infected. This is a serious condition. It must be watched closely to be sure the infection is not spreading. With antibiotic treatment, the size of the red area will gradually shrink in size until the skin returns to normal. This will take 7-10 days. The red area should never increase in size once the antibiotic medicine has been started. Occasionally, an infection will be resistant to one antibiotic and another one will have to be used. Home Care: 1) Limit the use of the affected part, since excess movement can cause the infection to spread. 2) If the infection is on your leg, walk as little as possible during the first few days of the treatment. Keep your leg elevated while sitting. This will reduce swelling. 3) Take all of the antibiotic medicine exactly as directed until it is gone. Be careful not to miss any doses, especially during the first seven days. Follow Up with your doctor or this facility as directed. Check the infected area daily for the warning signs listed below. Get Prompt Medical Attention if any of the following occur: -- Spreading area of redness -- Increasing swelling or pain -- Appearance of pus or drainage -- Fever over 100.4 F (38.0 C) oral, or over 101.4 F (38.6 C) rectal, after two days on antibiotics Folliculitis Folliculitis is an inflammation of the hair follicles (where the hair comes out of the skin). It is most often caused by infection with bacteria such as staph. Folliculitis usually looks like small white pimples in hairy areas of the skin. Severe cases may cause permanent hair loss and scarring. The condition is most often triggered by friction against the skin due to tight-fitting clothing. Ingrown hairs on the face of men are another cause. One type of folliculitis occurs after soaking in a hot tub when the water is contaminated with bacteria. Simple folliculitis usually clears by itself in a few days. Folliculitis that does not go away or comes back may need medical treatment. Oral and topical antibioticsmay beused. Home care The following will help you care for folliculitis at home: Wash the area with soap and water when you bathe, as usual. Unless another medicine was prescribed, you can apply a topical antibiotic cream twice a day. Follow-up care Follow up with your doctor as advised by our staff. When to seek medical care Get prompt medical attention if any of the following occur: Rash lasts longer than three days Rash changes appearance or spreads Abscess (boil) forms with local swelling, tenderness, or fluid drainage Fever of 100.4F (38C) or higher, or as directed by your health care provider Sulfamethoxazole, Trimethoprim Oral tablet What is this medicine? SULFAMETHOXAZOLE; TRIMETHOPRIM or SMX-TMP (suhl fuh meth OK krysta zohl; trye METH oh prim) is a combination of a sulfonamide antibiotic and a second antibiotic, trimethoprim. It is used to treat or prevent certain kinds of bacterial infections. It will not work for colds, flu, or other viral infections. How should I use this medicine? Take this medicine by mouth with a full glass of water. Follow the directions on the prescription label. Take your medicine at regular intervals. Do not take it more often than directed. Do not skip doses or stop your medicine early. Talk to your wide load escort regarding the use of this medicine in children. Special care may be needed. This medicine has been used in children as young as 2 months of age. What side effects may I notice from receiving this medicine? Side effects that you should report to your doctor or health manager intensive care as soon as possible: allergic reactions like skin rash or hives, swelling of the face, lips, or tongue breathing problems fever or chills, sore throat irregular heartbeat, chest pain joint or muscle pain pain or difficulty passing urine red pinpoint spots on skin redness, blistering, peeling or loosening of the skin, including inside the mouth unusual bleeding or bruising unusually weak or tired yellowing of the eyes or skin Side effects that usually do not require medical attention (report to your doctor or health manager intensive care if they continue or are bothersome): diarrhea dizziness headache loss of appetite nausea, vomiting nervousness What may interact with this medicine? Do not take this medicine with any of the following medications: aminobenzoate potassium dofetilide metronidazole This medicine may also interact with the following medications: MAXX inhibitors like benazepril, enalapril, lisinopril, and ramipril cyclosporine digoxin diuretics indomethacin medicines for diabetes methenamine methotrexate phenytoin potassium supplements pyrimethamine sulfinpyrazone tricyclic antidepressants warfarin What if I miss a dose? If you miss a dose, take it as soon as you can. If it is almost time for your next dose, take only that dose. Do not take double or extra doses. Where should I keep my medicine? Keep out of the reach of children. Store at room temperature between 20 to 25 degrees C (68 to 77 degrees F). Protect from light. Throw away any unused medicine after the expiration date. What should I tell my health care provider before I take this medicine? They need to know if you have any of these conditions: anemia asthma being treated with anticonvulsants if you frequently drink alcohol containing drinks kidney disease liver disease low level of folic acid or [id number] dehydrogenase poor nutrition or malabsorption porphyria severe allergies thyroid disorder an unusual or allergic reaction to sulfamethoxazole, trimethoprim, sulfa drugs, other medicines, foods, dyes, or preservatives or trying to get breast-feeding What should I watch for while using this medicine? Tell your doctor or health manager intensive care if your symptoms do not improve. Drink several glasses of water a day to reduce the risk of kidney problems. Do not treat diarrhea with over the counter products. Contact your doctor if you have diarrhea that lasts more than 2 days or if it is severe and watery. This medicine can make you more sensitive to the sun. Keep out of the sun. If you cannot avoid being in the sun, wear protective clothing and use a sunscreen. Do not use sun lamps or tanning beds/booths. You have been given the following additional information: Cellulitis Folliculitis Sulfamethoxazole, Trimethoprim Oral tablet (Electronically signed by Mohsen Jones MD 10/15/2016 11:13)
--- NOTE | 2016-10-15 11:14 | ED MED RECONCILIATION SUMMARY ---
Patient: JACOB LEONE Medication Reconciliation Report Merged With [facility] VisitID: [id number] [address] [place] [address] 31y, M Registration Date/Time: 10/15/2016 Weight: 79.3 kg Height/Length: 72 in. BMI: 23.7 ALLERGIES: Augmentin, NSAIDs The patient's Home Medications are listed below: THE FOLLOWING MEDICATIONS NEED TO BE RECONCILED: Albuterol Sulfate HFA Inhalation Bactrim DS Oral The source(s) of the original Home Medication information: patient The following Medications were given to the patient in the Emergency Department: None. The following Medications were prescribed to the patient: Trimethoprim-Sulfamethoxazole DS: take 1 tablet orally every 12 hours for 10 days. No refill. -- Mohsen Jones MD
--- NOTE | 2016-10-15 11:14 | ED DISCHARGE INSTRUCTIONS ---
Patient: JACOB LEONE General Instructions [facility] VisitID: [id number] [address] [place] [address] 31y, M Registration Date/Time: 10/15/2016 Cellulitis of the right lower leg, right ankle and right foot. Superficial folliculitis INSTRUCTIONS Warnings: GENERAL WARNINGS: Return or contact your physician immediately if your condition worsens or changes unexpectedly, if not improving as expected, or if other problems arise. Prescription Medications: Trimethoprim-Sulfamethoxazole DS: take 1 tablet orally every 12 hours for 10 days. No refill. Understanding of the discharge instructions verbalized by patient. Follow-up with: [facility], , , [address], [place], [address] Follow up in seven days if not better. Call for an appointment. ADDITIONAL INFORMATION Cellulitis You have an infection of the skin known as cellulitis. This usually starts with a scrape, cut, insect bite, blister or other opening in the skin which becomes infected. This is a serious condition. It must be watched closely to be sure the infection is not spreading. With antibiotic treatment, the size of the red area will gradually shrink in size until the skin returns to normal. This will take 7-10 days. The red area should never increase in size once the antibiotic medicine has been started. Occasionally, an infection will be resistant to one antibiotic and another one will have to be used. Home Care: 1) Limit the use of the affected part, since excess movement can cause the infection to spread. 2) If the infection is on your leg, walk as little as possible during the first few days of the treatment. Keep your leg elevated while sitting. This will reduce swelling. 3) Take all of the antibiotic medicine exactly as directed until it is gone. Be careful not to miss any doses, especially during the first seven days. Follow Up with your doctor or this facility as directed. Check the infected area daily for the warning signs listed below. Get Prompt Medical Attention if any of the following occur: -- Spreading area of redness -- Increasing swelling or pain -- Appearance of pus or drainage -- Fever over 100.4 F (38.0 C) oral, or over 101.4 F (38.6 C) rectal, after two days on antibiotics Folliculitis Folliculitis is an inflammation of the hair follicles (where the hair comes out of the skin). It is most often caused by infection with bacteria such as staph. Folliculitis usually looks like small white pimples in hairy areas of the skin. Severe cases may cause permanent hair loss and scarring. The condition is most often triggered by friction against the skin due to tight-fitting clothing. Ingrown hairs on the face of men are another cause. One type of folliculitis occurs after soaking in a hot tub when the water is contaminated with bacteria. Simple folliculitis usually clears by itself in a few days. Folliculitis that does not go away or comes back may need medical treatment. Oral and topical antibioticsmay beused. Home care The following will help you care for folliculitis at home: Wash the area with soap and water when you bathe, as usual. Unless another medicine was prescribed, you can apply a topical antibiotic cream twice a day. Follow-up care Follow up with your doctor as advised by our staff. When to seek medical care Get prompt medical attention if any of the following occur: Rash lasts longer than three days Rash changes appearance or spreads Abscess (boil) forms with local swelling, tenderness, or fluid drainage Fever of 100.4F (38C) or higher, or as directed by your health care provider Sulfamethoxazole, Trimethoprim Oral tablet What is this medicine? SULFAMETHOXAZOLE; TRIMETHOPRIM or SMX-TMP (suhl fuh meth OK krysta zohl; trye METH oh prim) is a combination of a sulfonamide antibiotic and a second antibiotic, trimethoprim. It is used to treat or prevent certain kinds of bacterial infections. It will not work for colds, flu, or other viral infections. How should I use this medicine? Take this medicine by mouth with a full glass of water. Follow the directions on the prescription label. Take your medicine at regular intervals. Do not take it more often than directed. Do not skip doses or stop your medicine early. Talk to your affiliate marketing coordinator regarding the use of this medicine in children. Special care may be needed. This medicine has been used in children as young as 2 months of age. What side effects may I notice from receiving this medicine? Side effects that you should report to your doctor or health medical care manager as soon as possible: allergic reactions like skin rash or hives, swelling of the face, lips, or tongue breathing problems fever or chills, sore throat irregular heartbeat, chest pain joint or muscle pain pain or difficulty passing urine red pinpoint spots on skin redness, blistering, peeling or loosening of the skin, including inside the mouth unusual bleeding or bruising unusually weak or tired yellowing of the eyes or skin Side effects that usually do not require medical attention (report to your doctor or health medical care manager if they continue or are bothersome): diarrhea dizziness headache loss of appetite nausea, vomiting nervousness What may interact with this medicine? Do not take this medicine with any of the following medications: aminobenzoate potassium dofetilide metronidazole This medicine may also interact with the following medications: MAXX inhibitors like benazepril, enalapril, lisinopril, and ramipril cyclosporine digoxin diuretics indomethacin medicines for diabetes methenamine methotrexate phenytoin potassium supplements pyrimethamine sulfinpyrazone tricyclic antidepressants warfarin What if I miss a dose? If you miss a dose, take it as soon as you can. If it is almost time for your next dose, take only that dose. Do not take double or extra doses. Where should I keep my medicine? Keep out of the reach of children. Store at room temperature between 20 to 25 degrees C (68 to 77 degrees F). Protect from light. Throw away any unused medicine after the expiration date. What should I tell my health care provider before I take this medicine? They need to know if you have any of these conditions: anemia asthma being treated with anticonvulsants if you frequently drink alcohol containing drinks kidney disease liver disease low level of folic acid or [id number] dehydrogenase poor nutrition or malabsorption porphyria severe allergies thyroid disorder an unusual or allergic reaction to sulfamethoxazole, trimethoprim, sulfa drugs, other medicines, foods, dyes, or preservatives or trying to get breast-feeding What should I watch for while using this medicine? Tell your doctor or health medical care manager if your symptoms do not improve. Drink several glasses of water a day to reduce the risk of kidney problems. Do not treat diarrhea with over the counter products. Contact your doctor if you have diarrhea that lasts more than 2 days or if it is severe and watery. This medicine can make you more sensitive to the sun. Keep out of the sun. If you cannot avoid being in the sun, wear protective clothing and use a sunscreen. Do not use sun lamps or tanning beds/booths. You have been given the following additional information: Cellulitis Folliculitis Sulfamethoxazole, Trimethoprim Oral tablet (Electronically signed by Mohsen Jones MD 10/15/2016 11:13)
--- NOTE | 2016-10-15 11:14 | ED MED RECONCILIATION SUMMARY ---
Patient: JACOB LEONE Medication Reconciliation Report [facility] VisitID: [id number] [address] [place] [address] 31y, M Registration Date/Time: 10/15/2016 Weight: 79.3 kg Height/Length: 72 in. BMI: 23.7 ALLERGIES: Augmentin, NSAIDs The patient's Home Medications are listed below: THE FOLLOWING MEDICATIONS NEED TO BE RECONCILED: Albuterol Sulfate HFA Inhalation Bactrim DS Oral The source(s) of the original Home Medication information: patient The following Medications were given to the patient in the Emergency Department: None. The following Medications were prescribed to the patient: Trimethoprim-Sulfamethoxazole DS: take 1 tablet orally every 12 hours for 10 days. No refill. -- Mohsen Jones MD
== END 2016-10-15 09:20 | disposition home or self-care (01) ==
LOC: ED SRH 09:00
DX: L03.115 Cellulitis of right lower limb (principal); L73.9 Follicular disorder, unspecified; F17.210 Nicotine dependence, cigarettes, uncomplicated; J45.909 Unspecified asthma, uncomplicated; F19.10 Other psychoactive substance abuse, uncomplicated; Z88.1 Allergy status to other antibiotic agents; Z88.8 Allergy status to other drugs, medicaments and biological substances